=== PATIENT | female | born 1985 | race Caucasian/White ===

== ENCOUNTER → 2017-05-04 | Outpatient (REF) ==
[~2017-05-04] MED LIST: AMO500 PO; LOR5 PO; LOR5/325 PO; NORE0.3522 PO; PER PO
--- NOTE | 2017-05-04 14:53 | RADIOLOGY IMAGING REPORT ---
FACILITY: [facility] PATIENT NAME: Shazia Melendrez : 1985 MR: [id number] V: [id number] EXAM DATE: ORDERING PHYSICIAN: LEA CORLEY TECHNOLOGIST: Location: [facility] [place] Patient: Shazia Melendrez : 1985 Visit/Account:[id number] Date of Sevice: 05/04/2017 THYROID HISTORY: Borderline hyperthyroidism, enlarged right thyroid COMPARISON: None. FINDINGS: SIZE: Right lobe: 5.4 x 1.4 x 1 cm Left lobe: 5.3 x 0.9 x 0.8 cm Isthmus: 1.7 mm PARENCHYMA: Homogeneous. NODULES: Right lobe: * None discrete. Left lobe: * None discrete. Isthmus: * None discrete. VASCULARITY: Within normal limits. ADDITIONAL FINDINGS: None. IMPRESSION: Unremarkable thyroid ultrasound REFERENCE: 2015 [employer] Management Guidelines for Adult Patients with Thyroid Nodules and D ifferentiated Thyroid Cancer: The [place] [employer] Guidelines Task Force on Thyroid Nodul es and Differentiated Thyroid Cancer. SONOGRAPHIC PATTERNS: * Benign: Purely cystic nodules (no solid component); estimated risk of malignancy <1 percent; no bi opsy recommended. * Very Low Suspicion: Spongiform or partially cystic nodules without any of the sonographic features described in low, intermediate, or high suspicion patterns; estimated risk of malignancy <3 percent; consider FNA at > 2 cm (Observation without FNA is also a reasonable option). * Low Suspicion: Isoechoic or hyperechoic solid nodule, or partially cystic nodule with eccentric so lid areas, without microcalcification, irregular margin or ETE (extra-thyroidal extension), or taller than wide shape; estimated risk of malignancy 5-10 percent; recommend FNA at >1.5 cm. * Intermediate Suspicion: Hypoechoic solid nodule with smooth margins without microcalcifications, E TE (extra-thyroidal extension), or taller than wide shape; estimated risk of malignancy 10-20 percent ; recommend FNA at > 1 cm. * High Suspicion: Solid hypoechoic nodule or solid hypoechoic component of a partially cystic nodule with one or more of the following features: irregular margins (infiltrative, microlobulated), microc alcifications, taller than wide shape, rim calcifications with small extrusive soft tissue component, evidence of ETE (extra-thyroidal extension); estimated risk of malignancy >70-90 percent; recommend FNA at > 1 cm. NOTES: * Although a sonographically suspicious subcentimeter thyroid nodule without evidence of extrathyroi seamus extension or sonographically suspicious lymph nodes may be observed with close sonographic follow -up rather than pursuing immediate FNA, patient age and preference may modify decision-making. A > 50% interval increase in nodule volume and/or development of new suspicious sonographic features are felt to be a valid reasons for potential re-aspiration of a nodule previously shown to have benig n FNA cytology. Report Dictated By: Maude Spring MD at 05/04/2017 2:48 PM Report E-Signed By: Maude Spring MD at 05/04/2017 2:49 PM BARRETTN:MARQUEZ
== END ==
LOC: US 01:18
PROVIDERS: ATTEND Nurse Practitioner
DX: E04.9 Nontoxic goiter, unspecified (principal)
CPT/HCPCS: 76536